=== PATIENT | female | born 1960 | race African-American/Black ===

== ENCOUNTER 2021-01-30 20:11 | Inpatient (IN) | payer MEDICAID, OTHER, SELFPAY ==
[2021-01-30] MEDS ORDERED: diphenhydrAMINE 50 MG/ML VIAL ONE (20:54)
[2021-01-30] MEDS ORDERED: Morphine 4 MG/ML VIAL ONE ×2 (20:54→23:16)
[2021-01-30 21:31] LABS: Reticulocyte Count 12.5 % (0.5-1.5)
[2021-01-30 21:35] LABS: Hemoglobin 6.9 g/dL (12.0-16.0); Mean Corpuscular HGB CONC 32.8 g/dL (32.0-36.0); Mean Corpuscular Hemoglobin 30.3 pg (27.0-31.0); Mean Corpuscular Volume 92.4 fL (78.0-98.0); Red Blood Cell (RBC) Count 2.29 mill/uL (4.20-5.40); White Blood Cell (WBC) Count 5.5 thou/uL (4.8-10.8)
[2021-01-30 21:48] LABS: CRP (Inflammatory) 0.64 mg/dL (= or < 0.5)
[2021-01-30 21:49] LABS: ALT (SGPT) 13 U/L (8-55); AST (SGOT) 46 U/L (5-34); Albumin 3.9 g/dL (3.5-5.0); Alkaline Phosphatase 100 U/L (40-110); Anion Gap 10 mmol/L (10-20); BUN (Urea Nitrogen) 10 mg/dL (9.8-20.1); Bilirubin, Total 3.1 mg/dL (0.2-1.2); Calc. Creatinine Clearance 0 mL/min (70-130); Calcium 9.5 mg/dL (7.8-10.44); Carbon Dioxide 25 mmol/L (22-29); Chloride 107 mmol/L (98-107); Globulin 3.5 g/dL (2.4-3.5); Glucose 73 mg/dL (70-105); Potassium 3.9 mmol/L (3.5-5.1); Protein, Total 7.4 g/dL (6.0-8.3); Sodium 138 mmol/L (136-145)
[2021-01-30] MEDS ORDERED: Ondansetron PF 4 MG/2 ML Vial ONE (21:49)
[2021-01-30 21:55] LABS: Elliptocytes SLIGHT = 2-5 cells (100X) (0-1/hpf); Eosinophils 6 % (0-10); Hypochromia SLIGHT = 6-15 cells (100X) (0-5/hpf); Lymphocytes 37 % (21-51); MDiff Complete? YES; Monocytes 5 % (0-10); Neutrophil 49 % (42-75); Nucleated RBC 3 % (0); Platelet Count 234 thou/uL (130-400); Platelet Morphology Comment Appears Adequate; Polychromasia SLIGHT = 2-3 cells (100X) (0-2/hpf); RBC Distribution Width 25.3 % (11.5-14.5); Reactive Lymphocytes 3 % (0-10); Sickle Cells SLIGHT = 1-5 cells (100X) (None Seen); Target Cells MODERATE= 6-15 cells (100X) (0-1/hpf)
[2021-01-30 22:33] LABS: Bilirubin Negative (Negative); Blood, Urine Negative (Negative); Clarity Clear (Clear); Glucose, Urine (Dipstick) Normal (Negative); Ketone, Urine Negative (Negative); Leukocyte Negative Leu/uL (Negative); Nitrite Negative (Negative); Protein, Urine (Dipstick) Negative (Neg-Trace); Specific Gravity, Urine 1.006 (1.002-1.036); Urobilinogen Normal mg/dL (Less than 2); pH, Urine 7.5 (5.0-9.0)
[2021-01-31] MEDS ORDERED: diphenhydrAMINE 50 MG/ML VIAL IVP PRN (01:22)
[2021-01-31] MEDS ORDERED: Morphine 4 MG/ML VIAL SLOW IVP PRN ×2 (01:22→01:30)
[2021-01-31] MEDS ORDERED: Sodium Chloride 0.9% 1,000 ML IV SCH ×2 (01:30)
[2021-01-31] MEDS ORDERED: Ondansetron PF 4 MG/2 ML Vial IVP PRN (01:30)
[2021-01-31] MEDS ORDERED: Ondansetron ODT 4 MG TAB SL PRN (01:30)
[2021-01-31] MEDS: Sodium Chloride 0.9% 1,000 ML IV SCH ×3 (02:30→21:33)
[2021-01-31] MEDS: Morphine 4 MG/ML VIAL SLOW IVP PRN ×2 (04:42→09:24)
[2021-01-31] MEDS: Ondansetron PF 4 MG/2 ML Vial IVP PRN (04:54)
[2021-01-31 05:35] LABS: Hemoglobin 6.7 g/dL (12.0-16.0); Mean Corpuscular HGB CONC 34.9 g/dL (32.0-36.0); Mean Corpuscular Hemoglobin 31.8 pg (27.0-31.0); Mean Corpuscular Volume 91.2 fL (78.0-98.0); Mean Platelet Volume 10.1 fL (7.4-10.4); Platelet Count 175 thou/uL (130-400); RBC Distribution Width 25.5 % (11.5-14.5); Red Blood Cell (RBC) Count 2.09 mill/uL (4.20-5.40)
[2021-01-31 05:45] LABS: Anion Gap 9 mmol/L (10-20); BUN (Urea Nitrogen) 8 mg/dL (9.8-20.1); Calc. Creatinine Clearance 96 mL/min (70-130); Calcium 8.4 mg/dL (7.8-10.44); Carbon Dioxide 21 mmol/L (22-29); Chloride 115 mmol/L (98-107); Glucose 99 mg/dL (70-105); Sodium 141 mmol/L (136-145)
[2021-01-31 05:52] LABS: Band 4 % (5-11); Eosinophils 1 % (0-10); Hypochromia SLIGHT = 6-15 cells (100X) (0-5/hpf); Lymphocytes 39 % (21-51); MDiff Complete? YES; Monocytes 7 % (0-10); Neutrophil 48 % (42-75); Nucleated RBC 5 % (0); Platelet Morphology Comment Appears Adequate; Reactive Lymphocytes 1 % (0-10); White Blood Cell (WBC) Count 24.6 thou/uL (4.8-10.8)
[2021-01-31 08:35] LABS: SARS-CoV-2 PCR by NAA Not Detected (NotDetected)
[2021-01-31] MEDS ORDERED: MULTIVITAMIN PO SCH (09:00)
[2021-01-31] MEDS: Multivit, Therapeutic 1 TAB PO SCH (09:24)
[2021-01-31] MEDS: Folic Acid 1 MG TAB PO SCH (09:24)
[2021-01-31] MEDS: Apixaban 5 MG TAB PO SCH ×2 (09:30→21:32)
[2021-01-31] MEDS: Fentanyl 100 MCG/2 ML VIAL SLOW IVP PRN ×2 (14:24→21:39)
[2021-01-31] MEDS: Acetaminophen 325 MG TAB PO PRN (22:00)
[2021-02-01] MEDS: Fentanyl 100 MCG/2 ML VIAL SLOW IVP PRN (08:45)
[2021-02-01] MEDS: Folic Acid 1 MG TAB PO SCH (08:46)
[2021-02-01] MEDS: Apixaban 5 MG TAB PO SCH ×2 (08:46→20:16)
[2021-02-01] MEDS: Multivit, Therapeutic 1 TAB PO SCH (08:46)
[2021-02-01] MEDS: Sodium Chloride 0.9% 1,000 ML IV SCH ×3 (08:55→20:16)
[2021-02-01] MEDS ORDERED: Enoxaparin Sodium 40 MG/0.4 ML SYRINGE SC SCH (09:00)
[2021-02-01] MEDS ORDERED: Lidocaine 5% Patch TD SCH (10:00)
[2021-02-01] MEDS: HYDROcodone/Acetaminophen 10/325 mg Tablet PO PRN ×3 (11:37→21:58)
[2021-02-01 12:12] LABS: Anion Gap 12 mmol/L (10-20); BUN (Urea Nitrogen) 5 mg/dL (9.8-20.1); Calc. Creatinine Clearance 100 mL/min (70-130); Calcium 8.4 mg/dL (7.8-10.44); Carbon Dioxide 19 mmol/L (22-29); Chloride 114 mmol/L (98-107); Glucose 88 mg/dL (70-105); Potassium 4.1 mmol/L (3.5-5.1); Sodium 141 mmol/L (136-145)
[2021-02-01 15:47] LABS: Hemoglobin 6.4 g/dL (12.0-16.0); Mean Corpuscular HGB CONC 35.9 g/dL (32.0-36.0); Mean Corpuscular Hemoglobin 32.7 pg (27.0-31.0); Mean Corpuscular Volume 91.2 fL (78.0-98.0); Mean Platelet Volume 10.7 fL (7.4-10.4); Platelet Count 181 thou/uL (130-400); RBC Distribution Width 29.6 % (11.5-14.5); Red Blood Cell (RBC) Count 1.95 mill/uL (4.20-5.40)
[2021-02-01 16:23] LABS: Anisocytosis MODERATE=16-30 cells (100X) (0-5/hpf); Elliptocytes SLIGHT = 2-5 cells (100X) (0-1/hpf); Eosinophils 6 % (0-10); Lymphocytes 35 % (21-51); MDiff Complete? YES; Monocytes 8 % (0-10); Neutrophil 49 % (42-75); Nucleated RBC 27 % (0); Ovalocytes SLIGHT = 2-5 cells (100X) (0-1/hpf); Platelet Morphology Comment Appears Adequate; Poikilocytosis MODERATE=16-30 cells (100X) (0-5/hpf); Polychromasia MODERATE = 3-4 cells (100X) (0-2/hpf); Reactive Lymphocytes 1 % (0-10); Sickle Cells MODERATE= 6-15 cells (100X) (None Seen); Target Cells SLIGHT = 2-5 cells (100X) (0-1/hpf); Tear Drops SLIGHT = 2-5 cells (100X) (0-1/hpf); White Blood Cell (WBC) Count 15.8 thou/uL (4.8-10.8)
[2021-02-02] MEDS: Fentanyl 100 MCG/2 ML VIAL SLOW IVP PRN ×2 (02:38→18:03)
[2021-02-02] MEDS: Folic Acid 1 MG TAB PO SCH (09:57)
[2021-02-02] MEDS: Apixaban 5 MG TAB PO SCH ×2 (09:57→20:17)
[2021-02-02] MEDS: Lidocaine 5% Patch TD SCH (09:57)
[2021-02-02] MEDS: Multivit, Therapeutic 1 TAB PO SCH (09:57)
[2021-02-02] MEDS: HYDROcodone/Acetaminophen 10/325 mg Tablet PO PRN ×2 (09:57→20:17)
[2021-02-02 14:33] LABS: Anion Gap 10 mmol/L (10-20); BUN (Urea Nitrogen) 4 mg/dL (9.8-20.1); Calc. Creatinine Clearance 112 mL/min (70-130); Calcium 8.6 mg/dL (7.8-10.44); Carbon Dioxide 19 mmol/L (22-29); Chloride 114 mmol/L (98-107); Glucose 95 mg/dL (70-105); Magnesium 1.9 mg/dL (1.6-2.6); Potassium 4.2 mmol/L (3.5-5.1); Sodium 139 mmol/L (136-145)
[2021-02-02 14:44] LABS: Anisocytosis MODERATE=16-30 cells (100X) (0-5/hpf); Band 4 % (5-11); Eosinophils 2 % (0-10); Hemoglobin 6.4 g/dL (12.0-16.0); Hypochromia SLIGHT = 6-15 cells (100X) (0-5/hpf); Large Platelets SLIGHT; Lymphocytes 25 % (21-51); MDiff Complete? YES; Mean Corpuscular HGB CONC 33.5 g/dL (32.0-36.0); Mean Corpuscular Hemoglobin 31.6 pg (27.0-31.0); Mean Corpuscular Volume 94.5 fL (78.0-98.0); Mean Platelet Volume 10.9 fL (7.4-10.4); Monocytes 9 % (0-10); Neutrophil 54 % (42-75); Nucleated RBC 20 % (0); Ovalocytes SLIGHT = 2-5 cells (100X) (0-1/hpf); Platelet Count 173 thou/uL (130-400); Platelet Morphology Comment Appears Adequate; Polychromasia MARKED = >4 cells (100X) (0-2/hpf); RBC Distribution Width 30.4 % (11.5-14.5); Reactive Lymphocytes 6 % (0-10); Red Blood Cell (RBC) Count 2.02 mill/uL (4.20-5.40); Sickle Cells MODERATE= 6-15 cells (100X) (None Seen); Target Cells MODERATE= 6-15 cells (100X) (0-1/hpf); Tear Drops SLIGHT = 2-5 cells (100X) (0-1/hpf); White Blood Cell (WBC) Count 6.3 thou/uL (4.8-10.8)
[2021-02-02] MEDS: Sodium Chloride 0.9% 1,000 ML IV SCH (17:18)
[2021-02-03 08:13] LABS: Anisocytosis MARKED = >30 cells (100X) (0-5/hpf); Band 1 % (5-11); Eosinophils 9 % (0-10); Lymphocytes 39 % (21-51); MDiff Complete? YES; Mean Corpuscular HGB CONC 32.2 g/dL (32.0-36.0); Mean Corpuscular Hemoglobin 30.9 pg (27.0-31.0); Mean Corpuscular Volume 95.9 fL (78.0-98.0); Mean Platelet Volume 8.2 fL (7.4-10.4); Monocytes 6 % (0-10); Neutrophil 44 % (42-75); Nucleated RBC 21 % (0); Platelet Count 117 thou/uL (130-400); Platelet Morphology Comment Appears Decreased; Polychromasia MARKED = >4 cells (100X) (0-2/hpf); RBC Distribution Width 31.6 % (11.5-14.5); Red Blood Cell (RBC) Count 1.96 mill/uL (4.20-5.40); Sickle Cells MODERATE= 6-15 cells (100X) (None Seen); Target Cells MODERATE= 6-15 cells (100X) (0-1/hpf); White Blood Cell (WBC) Count 6.4 thou/uL (4.8-10.8)
[2021-02-03] MEDS: Apixaban 5 MG TAB PO SCH (09:12)
[2021-02-03] MEDS: Multivit, Therapeutic 1 TAB PO SCH (09:13)
[2021-02-03] MEDS: Lidocaine 5% Patch TD SCH (09:13)
[2021-02-03] MEDS: Folic Acid 1 MG TAB PO SCH (09:13)
[2021-02-03] MEDS: HYDROcodone/Acetaminophen 10/325 mg Tablet PO PRN (09:15)
[2021-02-03] MEDS: Ondansetron PF 4 MG/2 ML Vial IVP PRN (09:16)
[2021-02-03] MEDS: Acetaminophen 325 MG TAB PO PRN (10:52)
[2021-02-03 11:10] VITALS: BP 144/55; TEMP 97
[2021-02-03 15:05] VITALS: BMI 29.0
== END 2021-02-03 16:48 | disposition home or self-care (01) | DRG 812 ==
LOC: ERS 20:11 → ONC 23:48
PROVIDERS: ADMIT Internal Medicine; ATTEND Internal Medicine
DX: D57.00 Hb-SS disease with crisis, unspecified (principal); Z86.718 Personal history of other venous thrombosis and embolism; Z96.643 Presence of artificial hip joint, bilateral; Z20.822 Contact with and (suspected) exposure to COVID-19; Z86.19 Personal history of other infectious and parasitic diseases; Z90.49 Acquired absence of other specified parts of digestive tract; Z98.51 Tubal ligation status; Z87.891 Personal history of nicotine dependence
CPT/HCPCS: 36415; 71045; 80048; 80053; 81003; 82550; 83690; 83735; 83880; 84484; 85007; 85025; 85027; 85046; 86140; 87635; 93005; 96374; 96375; 96376; J1200; J2270; J2405; J3010; U0003; U0005